=== PATIENT | female | born 1960 | race Caucasian/White ===

== ENCOUNTER 2018-09-16 21:29 | Emergency (ER) | payer OTHER ==
[2018-09-16 21:43] VITALS: BP 123/99
[2018-09-16 22:04] LABS: PLATELET COUNT 239 10^3/uL (150-400)
--- NOTE | 2018-09-16 22:11 | EDPHY ---
H & P Stated Complaint: SYNCOPAL EPISODE, L SIDE TINGLING Time Seen by Provider: 09/16/18 21:53 HPI/ROS: Chief Complaint: Syncope HPI: 58-year-old woman was [place] [employer] this [place] when she began feeling very hot. She says that the venue felt very stuffy. She began feeling a little bit of lightheadedness. She then had a witnessed syncopal episode which lasted about 30 sec. She was lowered to the ground by her . She did not hit her head or sustain any trauma. She woke up and stated she had some tingling in the left side her face and left arm but did not have any numbness or weakness. She is able to walk out to the lobby and sit down and rested. She was then able to walk 2 blocks back to their car without any difficulty. She did not have any chest pain. No shortness of breath. Does not have a history of similar episodes in the past. No family history of sudden cardiac . She does not smoke. No leg pain or swelling. No periods of immobility. He is currently without complaint. No recent illness. No fevers or chills. No cough. No nausea vomiting or diarrhea. She has no risk factors for coronary artery disease other than family history in her father. ROS: 10 systems were reviewed and were negative except those elements noted in the HPI. PMH: Depression Social History: No smoking, no alcohol, no recreational drug use Family History: non-contributory Physical Exam: Gen: Awake, Alert, No Distress HEENT: Nose: no rhinorrhea Eyes: PERRLA, EOMI Mouth: Moist mucosa Neck: Supple, no JVD Chest: nontender, lungs clear to auscultation Heart: S1, S2 normal, no murmur Abd: Soft, non-tender, no guarding Back: no CVA tenderness, no midline tenderness Ext: no edema, non-tender Skin: no rash Neuro: CN II-XII intact, Sensation grossly intact, Strength 5/5 in bilateral upper and lower extremities - Personal History Current Tetanus Diphtheria and Acellular Pertussis (TDAP): Unsure - Medical/Surgical History Hx Asthma: No Hx Chronic Respiratory Disease: No Hx Diabetes: No Hx Cardiac Disease: No Hx Renal Disease: No Hx Cirrhosis: No Hx Alcoholism: No Hx HIV/AIDS: No Hx Splenectomy or Spleen Trauma: No Other PMH: DENIES - Social History Smoking Status: Never smoked Constitutional: Initial Vital Signs Temperature (C) 36.5 C 09/16/18 21:41 Heart Rate 69 09/16/18 21:41 Respiratory Rate 16 09/16/18 21:41 Blood Pressure 123/99 H 09/16/18 21:41 O2 Sat (%) 96 09/16/18 21:41 O2 Delivery Mode Room Air Allergies/Adverse Reactions: acetaminophen [From Vicodin] Allergy (Verified 09/16/18 21:43) hydrocodone [From Vicodin] Allergy (Verified 09/16/18 21:43) Home Medications: Medication Instructions Recorded Cymbalta 09/16/18 Medical Decision Making - Diagnostics EKG Interpretation: ECG time 9:40 p.m., sinus rhythm with a rate of 67, normal axis, normal intervals, no acute ST or T-wave changes. Impression: Normal ECG. ED Course/Re-evaluation: 58-year-old with a syncopal episode while at a concert. Does not have a family history of sudden cardiac or arrhythmia. Her ECG is normal. Troponin is negative. History is consistent with a vasovagal event. Vital signs now are normal. She is normal sinus rhythm has remained cell on the monitor. I do not see any evidence of acute coronary syndrome. Will discharge with follow-up with primary care physician. She will return emergency department for any further symptoms or any concerns. - Data Points Laboratory Results: Laboratory Results 09/16/18 21:45 09/16/18 21:45 09/16/18 09/16/18 09/16/18 21:49 21:45 21:45 WBC 7.88 10^3/uL 10^3/uL (3.80-9.50) RBC 4.37 10^6/uL 10^6/uL (4.18-5.33) Hgb 13.0 g/dL g/dL (12.6-16.3) Hct 38.8 % % (38.0-47.0) MCV 88.8 fL fL (81.5-99.8) MCH 29.7 pg pg (27.9-34.1) MCHC 33.5 g/dL g/dL (32.4-36.7) RDW 11.9 % % (11.5-15.2) Plt Count 239 10^3/uL 10^3/uL (150-400) MPV 10.3 fL fL (8.7-11.7) Neut % (Auto) 50.3 % % (39.3-74.2) Lymph % (Auto) 40.2 % % (15.0-45.0) [place] % (Auto) 7.0 % % (4.5-13.0) Eos % (Auto) 1.6 % % (0.6-7.6) Baso % (Auto) 0.6 % % (0.3-1.7) Nucleat RBC Rel Count 0.0 % % (0.0-0.2) Absolute Neuts (auto) 3.96 10^3/uL 10^3/uL (1.70-6.50) Absolute Lymphs (auto) 3.17 10^3/uL H 10^3/uL (1.00-3.00) Absolute Monos (auto) 0.55 10^3/uL 10^3/uL (0.30-0.80) Absolute Eos (auto) 0.13 10^3/uL 10^3/uL (0.03-0.40) Absolute Basos (auto) 0.05 10^3/uL 10^3/uL (0.02-0.10) Absolute Nucleated RBC 0.00 10^3/uL 10^3/uL (0-0.01) Immature Gran % 0.3 % % (0.0-1.1) Immature Gran # 0.02 10^3/uL 10^3/uL (0.00-0.10) Sodium 138 mEq/L mEq/L (135-145) Potassium 3.7 mEq/L mEq/L (3.3-5.0) Chloride 100 mEq/L mEq/L (97-110) Carbon Dioxide 29 mEq/l mEq/l (22-31) Anion Gap 9 mEq/L mEq/L (6-14) BUN 15 mg/dL mg/dL (7-23) Creatinine 0.8 mg/dL mg/dL (0.6-1.0) Estimated GFR > 60 Glucose 136 mg/dL H mg/dL (70-100) Calcium 9.6 mg/dL mg/dL (8.5-10.4) POC Troponin I 0.00 ng/mL ng/mL (0.00-0.08) Point of Care Test Results: Chemistry 09/16/18 21:49 POC Troponin I 0.00 ng/mL ng/mL (0.00-0.08) Departure - Departure Disposition: Home, Routine, Self-Care Clinical Impression: Vasovagal syncope Condition: Good Instructions: Syncope (ED) Additional Instructions: Follow up with primary care physician in 3-4 days for further evaluation. Return to the emergency department for chest pain, further fainting, shortness of breath, palpitations, or any other concerns.
--- NOTE | 2018-09-16 22:13 | CPEKG ---
Test Reason : OPEN Blood Pressure : / mmHG Vent. Rate : 067 BPM Atrial Rate : 066 BPM P-R Int : 174 ms QRS Dur : 072 ms QT Int : 412 ms P-R-T Axes : 063 074 065 degrees QTc Int : 435 ms Sinus rhythm Confirmed by Juan Carlos Smith [id number] on 09/16/2018 10:13:18 PM Referred By: Confirmed By:Juan Carlos Smith
[2018-09-17] MEDS ORDERED: GLYCOPYRROLATE 0.2 MG/1 ML VIAL ONE (09:42)
[2018-09-17] MEDS ORDERED: ROCURONIUM 50 MG/5 ML VIAL ONE (09:42)
[2018-09-17] MEDS ORDERED: ONDANSETRON 4 MG/2 ML VIAL ONE (09:42)
[2018-09-17] MEDS ORDERED: LORazepam 2 MG/ML INJ ONE (09:42)
[2018-09-17] MEDS ORDERED: SUCCINYLCHOLINE CHLORIDE 200 MG/10 ML VIAL ONE (09:42)
[2018-09-17] MEDS ORDERED: fentaNYL 100 MCG/2 ML INJ ONE (09:42)
[2018-09-17] MEDS ORDERED: METHOHEXITAL SODIUM 100 MG/10 ML SYR IVP ONE (09:43)
== END 2018-09-16 22:25 | disposition home or self-care (01) ==
DX: R55 Syncope and collapse (principal)
CPT/HCPCS: 84484-PO; J0330; J2060; J2405; J3010